=== PATIENT | female | born 1935 | race Caucasian/White ===

== ENCOUNTER → 2016-06-22 | Outpatient (CLI) | payer MEDICARE, BC ==
--- NOTE | 2016-06-22 14:59 | XR ---
EXAMINATION TYPE: XR cervical spine comp DATE OF EXAM: 06/22/2016 1:33 PM COMPARISON: None HISTORY: 81-year-old female with cervicalgia, posterior left side neck pain, injury 3 years ago. TECHNIQUE: 6 years FINDINGS: No predental space widening or prevertebral soft tissue swelling. There appears to be some degenerati ve bony ankylosis along the posterior elements of the C2-C3 vertebra. Moderate disc/endplate degenera tive change mid to lower cervical spine with disc space narrowing, endplate irregularity, and disc os teophyte complex. Corresponding multilevel facet and uncovertebral joint arthropathy. On the right, there is moderate bony spondylotic neural foraminal narrowing at C3-C4 and C6-C7. On the left, there is moderate bony spondylotic foraminal narrowing and C4-C5. Alignment is maintained. IMPRESSION: Moderate multilevel spondylotic change with variable moderate neuroforaminal narrowing as outlined ab ove. No prevertebral soft tissue swelling or malalignment.
== END | disposition home or self-care (01) ==
LOC: RADXRMAIN 13:02
PROVIDERS: ATTEND Family Medicine
DX: M99.71 Connective tissue and disc stenosis of intervertebral foramina of cervical region (principal); M47.812 Spondylosis without myelopathy or radiculopathy, cervical region
CPT/HCPCS: 72050

== ENCOUNTER 2017-04-12 15:47 | Inpatient (IN) | payer MEDICARE, BC ==
[2017-04-12] MEDS ORDERED: ASPIRIN 81 MG PO STA (16:35)
[2017-04-12] MEDS ORDERED: ONDANSETRON 4 MG/2 ML VIAL IVP STA (16:35)
[2017-04-12] MEDS ORDERED: SODIUM CHLORIDE 0.9% 500 ML IV STA (16:35)
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
[2017-04-12 17:57] LABS: Appearance,Urine Cloudy (Clear); Bacteria,Urine Rare /hpf; Bilirubin,Urine Negative (Negative); Glucose,Urine (UA) Negative (Negative); Ketones,Urine Negative (Negative); Leukocyte Esterase,Urine Large (Negative); Mucus,Urine Rare /hpf; Nitrite,Urine Negative (Negative); PH, Urine 5.5 (5.0-8.0); Particle Count 2819; Protein,Urine Negative (Negative); RBC,Urine 1 /hpf (0-5); Specific Gravity,Urine 1.014 (1.001-1.035); Squamous Epithelial Cell,Urine 8 /hpf (0-4); UA Billing (MACRO vs. MICRO) MICRO; Urobilinogen,Urine <2.0 mg/dL (<2.0); WBC,Urine 5 /hpf (0-5)
[2017-04-12 18:07] LABS: Anion Gap 12 mmol/L; Blood Urea Nitrogen 15 mg/dL (7-17); Calcium 9.5 mg/dL (8.4-10.2); Carbon Dioxide 22 mmol/L (22-30); Chloride 105 mmol/L (98-107); Glucose 116 mg/dL (74-99); Magnesium 1.8 mg/dL (1.6-2.3); Non-African American GFR(MDRD) >60 (>60 ml/min/1.73 sqM); Potassium 5.1 mmol/L (3.5-5.1); Sodium 139 mmol/L (137-145)
--- NOTE | 2017-04-12 18:10 | XR ---
EXAMINATION TYPE: XR chest 2V DATE OF EXAM: 04/12/2017 COMPARISON: 01/22/2014 HISTORY: Neck pain TECHNIQUE: Frontal and lateral views of the chest are obtained. FINDINGS: Heart is normal. Lungs are clear of consolidation. Left mastectomy is noted. There is no p leural effusion. Bony thorax is intact. There is spurring in the thoracic spine. IMPRESSION: No active cardiopulmonary disease. No change.
[2017-04-12 18:11] LABS: Basophils % (A) 0 %; CH 31.2; CHCM 33.9; Eosinophils # (A) 0.2 k/uL (0-0.7); Eosinophils % (A) 3 %; HCT 45.6 % (34.0-46.0); HDW 2.31; HGB 15.3 gm/dL (11.4-16.0); Luc # (Auto) 0.15; Luc % (Auto) 2; Lymphocytes # (A) 2.1 k/uL (1.0-4.8); Lymphocytes % (A) 28 %; MCH 30.9 pg (25.0-35.0); MCHC 33.5 g/dL (31.0-37.0); MCV 92.2 fL (80.0-100.0); Mean Platelet Volume 10.6; Monocytes # (A) 0.5 k/uL (0-1.0); Monocytes % (A) 7 %; Neutrophils # (A) 4.5 k/uL (1.3-7.7); Neutrophils % (A) 61 %; RBC 4.94 m/uL (3.80-5.40); RDW 12.6 % (11.5-15.5); WBC 7.5 k/uL (3.8-10.6)
--- NOTE | 2017-04-12 18:11 | XR ---
EXAMINATION TYPE: XR cervical spine limited DATE OF EXAM: 04/12/2017 COMPARISON: 06/22/2016 HISTORY: Neck pain TECHNIQUE: 4 views FINDINGS: Vertebra have normal alignment. There is hypertrophic spurring anteriorly at C5-6 C6-7. Ernestina antoaxial facet joint is normal. There are no cervical ribs. IMPRESSION: Spondylosis in the lower cervical spine. No fracture. No change.
[2017-04-12 20:42] VITALS: BMI 29.2
[2017-04-13 01:29] LABS: Creatine Kinase 38 U/L (30-135)
[2017-04-13 01:42] LABS: Creatine Kinase MB 0.7 ng/mL (0.0-2.4); Troponin I <0.012 ng/mL (0.000-0.034)
[2017-04-13] MEDS ORDERED: INFLUENZA VACCINE (6 MOS+) 60 MCG/0.5 ML SYRINGE IM ONE (02:15)
[2017-04-13 05:02] VITALS: RESP 18
[2017-04-13 06:48] LABS: Cholesterol 179 mg/dL (<200); HDL Cholesterol 49 mg/dL (40-60)
[2017-04-13 06:57] LABS: Glucose,Whole Blood 129 mg/dL (75-99)
[2017-04-13 06:59] LABS: Creatine Kinase 35 U/L (30-135)
[2017-04-13 07:11] LABS: Creatine Kinase MB 0.7 ng/mL (0.0-2.4); Troponin I <0.012 ng/mL (0.000-0.034)
[2017-04-13] MEDS ORDERED: ASPIRIN 325 MG TAB PO SCH (09:00)
[2017-04-13] MEDS ORDERED: REGADENOSON 0.4 MG/5 ML SYRINGE IV ONE (09:35)
[2017-04-13] MEDS ORDERED: AMINOPHYLLINE 500 MG/20 ML VIAL IV PRN (09:35)
--- NOTE | 2017-04-13 12:04 | ECHOF ---
Referral Reason:cp MEASUREMENTS -------- HEIGHT: 167.6 cm WEIGHT: 82.1 kg BP: 142/77 RVIDd: 2.9 cm (< 3.3) IVSd: 1.0 cm (0.6 - 1.1) LVIDd: 4.5 cm (3.9 - 5.3) LVPWd: 1.0 cm (0.6 - 1.1) IVSs: 1.2 cm LVIDs: 2.8 cm LVPWs: 1.2 cm LAESV Index (A-L): 15.86 ml/m Ao Diam: 3.5 cm (2.0 - 3.7) AV Cusp: 1.7 cm (1.5 - 2.6) LA Diam: 2.7 cm (2.7 - 3.8) MV EXCURSION: 14.924 mm (> 18.000) MV EF SLOPE: 58 mm/s (70 - 150) EPSS: 0.6 cm MV E Michele: 0.58 m/s MV DecT: 380 ms MV A Michele: 0.96 m/s MV E/A Ratio: 0.60 AV maxP.22 mmHg AV meanP.65 mmHg FINDINGS -------- Sinus rhythm. This was a technically difficult study with suboptimal views. The left ventricular size is normal. Left ventricular wall thickness is normal. Overall left vent ricular systolic function is normal with, an EF between 55 - 60 %. The right ventricle is normal in size and function. Normal LA size by volume 22+/-6 ml/m2. The right atrium is normal in size. 1.5mg of Definity was utilized for enhancement of images Aortic valve is trileaflet and is mildly thickened. The mitral valve leaflets are mildly thickened. Mild mitral regurgitation is present. The tricuspid valve appears structurally normal. Trace tricuspid regurgitation present. The pulmonic valve was not well visualized. There is no pulmonic regurgitation present. The aortic root size is normal. Normal inferior vena cava with normal inspiratory collapse consistent with estimated right atrial pre ssure of 5 mmHg. There is no pericardial effusion. CONCLUSIONS -------- 1. This was a technically difficult study with suboptimal views. 2. Left ventricular wall thickness is normal. 3. Overall left ventricular systolic function is normal with, an EF between 55 - 60 %. 4. Normal LA size by volume 22+/-6 ml/m2. 5. 1.5mg of Definity was utilized for enhancement of images 6. Aortic valve is trileaflet and is mildly thickened. 7. The mitral valve leaflets are mildly thickened. 8. Mild mitral regurgitation is present. 9. Trace tricuspid regurgitation present. 10. The pulmonic valve was not well visualized. 11. There is no pulmonic regurgitation present. 12. The aortic root size is normal. 13. There is no pericardial effusion. TELEVISION TECHNICIAN: Lee Quinones RDCS
[2017-04-13 12:19] LABS: Glucose,Whole Blood 126 mg/dL (75-99)
[2017-04-13 13:01] VITALS: BP 109/63; PULSE 72; TEMP 98.5
--- NOTE | 2017-04-13 13:08 | NM ---
EXAMINATION TYPE: NM stress lexiscan cardiolite DATE OF EXAM: 04/13/2017 COMPARISON: NONE HISTORY: TECHNIQUE: After the intravenous administration of 11.7 mCi Tc 99m Sestamibi - Cardiolite resting SP ECT images acquired 45 minutes post injection. The patient received 0.4mg Lexiscan, 28.8 mCi Tc 99m Sestamibi - Stress images obtained [address] injection FINDINGS: There is a fixed defect in the inferior aspect of the septum. There is some reversible isch emic change surrounding this area. There is paradoxical motion of the septum. Ejection fraction remai ns normal 66%. IMPRESSION: 1. EVIDENCE OF ANAMIKA-INFARCT ISCHEMIA IN THE REGION OF THE PREVIOUS SEPTAL INFARCT. 2. PARADOXICAL MOTION OF THE SEPTUM BUT CONTINUING NORMAL EJECTION FRACTION.
--- NOTE | 2017-04-13 13:51 | P.CRDCN ---
History of Present Illness Consult date: 04/13/17 History of present illness: This is an 81-year-old female patient past medical history significant for diabetes mellitus. Patient denies any history of coronary artery disease and is never seen a tube and manifold builder for any reason. She did undergo stress testing about 5-7 years ago with her primary care doctor and she states this was normal. Yesterday she woke up in the morning not feeling herself she said she felt nauseous and generalized weakness. She proceeded around about her day with her normal routine but the feelings persisted and became worse. She then developed some pain to the left arm she described as hot feeling. She went to physical therapy and felt that her arm heaviness and increased. At the time of my examination while she is resting in bed she denies left arm pain although when a raise the arm above her head the pain returns. EKG reveals first-degree AV block. Chest x-ray negative for acute cardiopulmonary process. Blood pressure 147/68 with a heart rate of 67. Cardiac enzymes negative 3, hemoglobin 15.3, potassium 5.1, magnesium 1.8, UUN 15, creatinine 0.6, LDL 100, HDL 49, triglycerides 148, total cholesterol 179. Review of Systems CONSTITUTIONAL: Denies fever. Denies chills. EYES: Denies blurred vision. Denies vision changes. Denies eye pain. EARS, NOSE, MOUTH & THROAT: Denies headache. Denies sore throat. Denies ear pain. CARDIOVASCULAR: Denies chest pain. Denies shortness of breath. Denies orthopnea. Denies PND. Denies palpitations. RESPIRATORY: Denies cough. GASTROINTESTINAL: Denies abdominal pain. Denies diarrhea. Denies constipation. Complains of nausea. Denies vomiting. MUSCULOSKELETAL: Denies myalgias. INTEGUMENTARY: Denies pruitis. Denies rash. NEUROLOGIC: Denies numbness. Denies tingling. Denies weakness. PSYCHIATRIC: Denies anxiety. Denies depression. ENDOCRINE: Complains of fatigue. Denies weight change. Denies polydipsia. Denies polyurina. GENITOURINARY: Denies burning, hematuria or urgency with micturation. HEMATOLOGIC: Denies history of anemia. Denies bleeding. Past Medical History Past Medical History: Diabetes Mellitus, Memory Impairment, Osteoarthritis (OA) History of Any Multi-Drug Resistant Organisms: None Reported Past Surgical History: Breast Surgery, Cholecystectomy, Tonsillectomy Additional Past Surgical History / Comment(s): 1985 Lt mastectomy, ovarian cyst removed 1956, [id number] removed bilat., colonoscopy's 2013 Past Anesthesia/Blood Transfusion Reactions: No Reported Reaction Past Psychological History: No Psychological Hx Reported Smoking Status: Never smoker Past Alcohol Use History: None Reported Past Drug Use History: None Reported - Past Family History Father Family Medical History: Congestive Heart Failure (CHF) Mother Additional Family Medical History / Comment(s): of old age Sister(s) Family Medical History: Cancer, Diabetes Mellitus, Renal Disease Additional Family Medical History / Comment(s): Colon CA Brother(s) Family Medical History: Cancer Additional Family Medical History / Comment(s): Colon CA Medications and Allergies Home Medications Medication Instructions Recorded Confirmed Type Ibuprofen [Motrin] 600 mg PO Q6HR PRN 04/12/17 04/12/17 History metFORMIN HCL [Glucophage] 500 mg PO DAILY 04/12/17 04/12/17 History Allergies Allergy/AdvReac Type Severity Reaction Status Date / Time cefaclor [From Ceclor] Allergy Rash/Hives Verified 04/12/17 20:13 Penicillins Allergy Rash/Hives Verified 04/12/17 20:13 Physical Exam Vitals: Vital Signs Temp Pulse Pulse Resp BP BP Pulse Ox 04/13/17 04:00 97.6 F 67 18 147/68 97 04/13/17 00:00 16 04/12/17 23:54 97.9 F 61 18 124/66 98 04/12/17 20:14 97.7 F 68 18 165/77 96 04/12/17 19:41 97.5 F L 70 18 154/85 99 04/12/17 18:27 98 F 65 17 150/73 99 04/12/17 15:48 100.2 F H 73 18 149/77 96 Intake and Output 04/12/17 04/13/17 04/13/17 22:59 06:59 14:59 Intake Total 400 400 Balance 400 400 Intake: Oral 400 400 Other: Voiding Method Toilet # Voids 2 2 Weight 82.3 kg GENERAL: This is a 81-year-old female in no apparent distress at the time of my examination. HEENT: Head is atraumatic, normocephalic. Pupils are equal, round. Sclerae anicteric. Conjunctivae are clear. Mucous membranes of the mouth are moist. Neck is supple. There is no jugular venous distention. No carotid bruit is heard. LUNGS: Clear to auscultation no wheezes, rales or rhonchi. No chest wall tenderness is noted on palpation or with deep breathing. HEART: Regular rate and rhythm without murmurs, rubs or gallops. S1 and S2 heard. ABDOMEN: Soft, nontender. Bowel sounds are heard. No organomegaly noted. EXTREMITIES: 2+ peripheral pulses with no evidence of peripheral edema and no calf tenderness noted. NEUROLOGIC: Patient is awake, alert and oriented x3. Results 04/12/17 17:40 04/12/17 17:40 Cardiac Enzymes 04/12/17 04/13/17 04/13/17 Range/Units 17:40 00:28 06:14 CK-MB (CK-2) 0.7 0.7 (0.0-2.4) ng/mL Troponin I <0.012 <0.012 <0.012 (0.000-0.034) ng/mL Lipids 04/13/17 Range/Units 06:14 Triglycerides 148 (<150) mg/dL Cholesterol 179 (<200) mg/dL HDL Cholesterol 49 (40-60) mg/dL CBC 04/12/17 Range/Units 17:40 WBC 7.5 (3.8-10.6) k/uL RBC 4.94 (3.80-5.40) m/uL Hgb 15.3 (11.4-16.0) gm/dL Hct 45.6 (34.0-46.0) % Plt Count 128 L (150-450) k/uL Comprehensive Metabolic Panel 04/12/17 Range/Units 17:40 Sodium 139 (137-145) mmol/L Potassium 5.1 (3.5-5.1) mmol/L Chloride 105 (98-107) mmol/L Carbon Dioxide 22 (22-30) mmol/L BUN 15 (7-17) mg/dL Creatinine 0.60 (0.52-1.04) mg/dL Glucose 116 H (74-99) mg/dL Calcium 9.5 (8.4-10.2) mg/dL Current Medications Generic Name Dose Route Start Last Admin Trade Name Freq PRN Reason Stop Dose Admin Aspirin 325 mg 04/13/17 09:00 Aspirin PO DAILY STEPHANIE Intake and Output 04/12/17 04/13/17 04/13/17 22:59 06:59 14:59 Intake Total 400 400 Balance 400 400 Intake: Oral 400 400 Other: Voiding Method Toilet # Voids 2 2 Weight 82.3 kg 04/12/17 17:40 04/12/17 17:40 Assessment and Plan Assessment: ASSESSMENT 1. Left arm pain with nausea persistent at rest, atypical for acute coronary syndrome. Cardiac risk factors include diabetes mellitus. 2. Diabetes mellitus, on oral hyperglycemic agent PLAN Obtain 2D echocardiogram and doppler study to assess cardiac structure and function. She has been NPO since midnight so we will order a Lexiscan stress test to evaluate for cardiac ischemia. From cardiac perspective, if this testing is normal she is stable for discharge home. She can follow up with her PCP next week. Nurse Practitioner note has been reviewed, I agree with a documented findings and plan of care. Patient was seen and examined.
--- NOTE | 2017-04-13 14:03 | EST ---
EXERCISE STRESS AGE: 81 SEX: F HT: 5'6" WT: 182 PROTOCOL: Lexiscan Cardiolite Stress Test HEART RATE REST: 70 BLOOD PRESSURE REST: 192/104 MAXIMUM HEART RATE ACHIEVED: 86 MAXIMUM BLOOD PRESSURE: 192/104 INDICATIONS: Chest pain. CLINICAL INFORMATION: Baseline rhythm is a sinus mechanism, rate of 70, intraventricular conduction delay, nonspecific ST-T wave changes. Baseline blood pressure 192/104 mmHg. Patient received injection of Lexiscan. Electrocardiographic monitoring revealed no evidence of diagnostic ischemic ST deviation. Cardiolite was injected per protocol. CONCLUSION: 1. Nondiagnostic electrocardiogram stress testing. 2. Nuclear images will be reported separately. MMODL / IJN: [id number] /
--- NOTE | 2017-04-13 16:13 | P.HPIM ---
History of Present Illness 81-year-old female came in with compensative chest pain which appears to be musculoskeletal and related to neck pain patient has degenerative neck disease patient has radiating pain from the neck to the arms patient has atypical chest pain patient's chest pain is about 5- 6 x 10 in severity nonradiating.not associated with food nonpleuritic in nature patient was a valid by cardiology underwent stress test which showed old ischemic changes without any inducible ischemia because of which cardiology recommending outpatient follow-up aspirin. Patient regarding cardiac ablation will be made as an outpatient. Review of Systems REVIEW OF SYSTEMS: CONSTITUTIONAL: No fever, no malaise, no fatigue. HEENT: No recent visual problems or hearing problems. Denied any sore throat. CARDIOVASCULAR: No orthopnea, PND, no palpitations, no syncope. PULMONARY: No shortness of breath, no cough, no hemoptysis. GASTROINTESTINAL: No diarrhea, no nausea, no vomiting, no abdominal pain. Normoactive bowel sounds. NEUROLOGICAL: No headaches, no weakness, no numbness. HEMATOLOGICAL: Denies any bleeding or petechiae. GENITOURINARY: Denies any burning micturition, frequency, or urgency. MUSCULOSKELETAL/RHEUMATOLOGICAL: Denies any joint pain, swelling, or any muscle pain. ENDOCRINE: Denies any polyuria or polydipsia. The rest of the 14-point review of systems is negative. Past Medical History Past Medical History: Diabetes Mellitus, Memory Impairment, Osteoarthritis (OA) History of Any Multi-Drug Resistant Organisms: None Reported Past Surgical History: Breast Surgery, Cholecystectomy, Tonsillectomy Additional Past Surgical History / Comment(s): 1985 Lt mastectomy, ovarian cyst removed 1956, [id number] removed bilat., colonoscopy's 2013 Past Anesthesia/Blood Transfusion Reactions: No Reported Reaction Past Psychological History: No Psychological Hx Reported Smoking Status: Never smoker Past Alcohol Use History: None Reported Past Drug Use History: None Reported - Past Family History Father Family Medical History: Congestive Heart Failure (CHF) Mother Additional Family Medical History / Comment(s): of old age Sister(s) Family Medical History: Cancer, Diabetes Mellitus, Renal Disease Additional Family Medical History / Comment(s): Colon CA Brother(s) Family Medical History: Cancer Additional Family Medical History / Comment(s): Colon CA Medications and Allergies Home Medications Medication Instructions Recorded Confirmed Type Ibuprofen [Motrin] 600 mg PO Q6HR PRN 04/12/17 04/12/17 History metFORMIN HCL [Glucophage] 500 mg PO DAILY 04/12/17 04/12/17 History Aspirin 81 mg PO DAILY #30 chewable 04/13/17 Rx Ranitidine HCl [Zantac] 150 mg PO BID #30 tab 04/13/17 Rx Allergies Allergy/AdvReac Type Severity Reaction Status Date / Time cefaclor [From [facility]] Allergy Rash/Hives Verified 04/12/17 20:13 Penicillins Allergy Rash/Hives Verified 04/12/17 20:13 Physical Exam Vitals: Vital Signs Temp Pulse Pulse Resp BP BP Pulse Ox 04/13/17 12:00 98.5 F 72 18 109/63 96 04/13/17 08:00 97.8 F 57 L 18 142/77 97 04/13/17 04:00 97.6 F 67 18 147/68 97 04/13/17 00:00 16 04/12/17 23:54 97.9 F 61 18 124/66 98 04/12/17 20:14 97.7 F 68 18 165/77 96 04/12/17 19:41 97.5 F L 70 18 154/85 99 04/12/17 18:27 98 F 65 17 150/73 99 Intake and Output 04/13/17 04/13/17 04/13/17 06:59 14:59 22:59 Intake Total 400 360 Balance 400 360 Intake: Oral 400 360 Other: Voiding Method Toilet Toilet # Voids 2 PHYSICAL EXAMINATION: GENERAL: The patient is alert and oriented x3, not in any acute distress. Well developed, well nourished. HEENT: Pupils are round and equally reacting to light. EOMI. No scleral icterus. No conjunctival pallor. Normocephalic, atraumatic. No pharyngeal erythema. No thyromegaly. CARDIOVASCULAR: S1 and S2 present. No murmurs, rubs, or gallops. PULMONARY: Chest is clear to auscultation, no wheezing or crackles. ABDOMEN: Soft, nontender, nondistended, normoactive bowel sounds. No palpable organomegaly. MUSCULOSKELETAL: No joint swelling or deformity. EXTREMITIES: No cyanosis, clubbing, or pedal edema. NEUROLOGICAL: Gross neurological examination did not reveal any focal deficits. SKIN: No rashes. Results CBC & Chem 7: 04/12/17 17:40 04/12/17 17:40 Labs: Abnormal Lab Results - Last 24 Hours (Table) 04/12/17 04/12/17 04/12/17 Range/Units 17:40 17:40 17:40 Plt Count 128 L (150-450) k/uL Glucose 116 H (74-99) mg/dL POC Glucose (mg/dL) (75-99) mg/dL LDL Cholesterol, Calc (0-99) mg/dL Urine Appearance Cloudy H (Clear) Ur Leukocyte Esterase Large H (Negative) Ur Squamous Epith Cells 8 H (0-4) /hpf Urine Bacteria Rare H (None) /hpf Urine Mucus Rare H (None) /hpf 04/13/17 04/13/17 04/13/17 Range/Units 06:14 06:54 12:15 Plt Count (150-450) k/uL Glucose (74-99) mg/dL POC Glucose (mg/dL) 129 H 126 H (75-99) mg/dL LDL Cholesterol, Calc 100 H (0-99) mg/dL Urine Appearance (Clear) Ur Leukocyte Esterase (Negative) Ur Squamous Epith Cells (0-4) /hpf Urine Bacteria (None) /hpf Urine Mucus (None) /hpf Thrombosis Risk Factor Assmnt - Choose All That Apply Each Risk Factor Represents 3 Points: Age 75 years or older Other congenital or acquired thrombophilia - If yes, enter type in comment: No Thrombosis Risk Factor Assessment Total Risk Factor Score: 3 Thrombosis Risk Factor Assessment Level: Moderate Risk Assessment and Plan Plan: left shoulder pain and neck pain: [place] skeletal in origin rule out acute coronary syndromes stresses as mentioned above. 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 Norton as an outpatient. Patient can continue her ibuprofen Pepcid will be provided to avoid gastroesophageal reflux disease.
--- NOTE | 2017-04-13 16:16 | P.DS ---
Providers Date of admission: 04/13/17 14:08 Attending physician: Mitch Pierce Consults: 04/12/17 18:58 Consult Physician Urgent Consulting Provider: [facility] Consult Reason/Comments: anginal equivalent Do you want consulting provider notified?: Yes Primary care physician: Hugo Roca [facility] Course: refer to my [facility] Patient Condition at Discharge: Good Plan - Discharge Summary Discharge Rx Participant: Yes New Discharge Prescriptions: New Ranitidine HCl [Zantac] 150 mg PO BID #30 tab Aspirin 81 mg PO DAILY #30 chewable No Action metFORMIN HCL [Glucophage] 500 mg PO DAILY Ibuprofen [Motrin] 600 mg PO Q6HR PRN PRN Reason: Pain Discharge Medication List Ibuprofen [Motrin] 600 mg PO Q6HR PRN 04/12/17 [History] metFORMIN HCL [Glucophage] 500 mg PO DAILY 04/12/17 [History] Aspirin 81 mg PO DAILY #30 chewable 04/13/17 [Rx] Ranitidine HCl [Zantac] 150 mg PO BID #30 tab 04/13/17 [Rx] Follow up Appointment(s)/Referral(s): Tessa Norton MD [STAFF PHYSICIAN] - 04/16/17 8:00 am Hugo Roca DO [Primary Care Provider] - 3 Days Patient Instructions/Handouts: Chest Pain (DC) Discharge Disposition: HOME SELF-CARE
== END 2017-04-13 15:30 | disposition home or self-care (01) | DRG 552 ==
LOC: EC 15:47 → 3OBS 18:58 → OBSVTOIN 04-13 14:08
PROVIDERS: ADMIT Hospitalist; ATTEND Hospitalist
DX: M47.812 Spondylosis without myelopathy or radiculopathy, cervical region (principal); E11.65 Type 2 diabetes mellitus with hyperglycemia; M47.894 Other spondylosis, thoracic region; M25.512 Pain in left shoulder; I44.0 Atrioventricular block, first degree; Z79.82 Long term (current) use of aspirin; Z80.0 Family history of malignant neoplasm of digestive organs; Z82.49 Family history of ischemic heart disease and other diseases of the circulatory system; Z83.3 Family history of diabetes mellitus; Z88.1 Allergy status to other antibiotic agents; Z88.0 Allergy status to penicillin; Z79.84 Long term (current) use of oral hypoglycemic drugs
CPT/HCPCS: 36415; 71020; 72040; 78452; 80048; 80061; 81001; 82550; 82553; 83036; 83735; 84484; 85025; 90686; 93005; 93017; 93306; 96361; 96374; 99284

== ENCOUNTER → 2017-04-17 | Outpatient (CLI) | payer MEDICARE, BC ==
--- NOTE | 2017-04-17 13:53 | MM ---
Reason for exam: additional evaluation requested from prior study. Last mammogram was performed 1 year ago. History: Patient is postmenopausal and has history of breast cancer at age 50. Family history of breast cancer in father at age 80, breast cancer in sister at age 86, and breast cancer in sister at age 74. Mastectomy of the left breast, 1985. Took tamoxifen for 5 years beginning at age 51. Physical Findings: Nurse did not find any significant physical abnormalities on exam. MG 3D Diag Mammo W/Cad RT CC, MLO, XCCL, and ML view(s) were taken of the right breast. Prior study comparison: April 12, 2016, right breast MG 3d diag mammo w/cad RT. March 29, 2015, right breast MG 3d diag mammo w/cad RT. March 09, 2014, right breast MG diagnostic mammo RT w CAD. There are scattered fibroglandular densities. There is chronic nodularity in the right breast. No significant new findings when compared with previous films. These results were verbally communicated with the patient and result sheet given to the patient on 04/17/17. ASSESSMENT: Negative, BI-RAD 1 RECOMMENDATION: Follow-up diagnostic mammogram of the right breast in 1 year.
== END | disposition home or self-care (01) ==
LOC: RADMAMWWP 12:40
PROVIDERS: ATTEND Family Medicine
DX: Z08 Encounter for follow-up examination after completed treatment for malignant neoplasm (principal); Z85.3 Personal history of malignant neoplasm of breast
CPT/HCPCS: G0206; G0279

== ENCOUNTER → 2017-04-30 | Day surgery (SDC) | payer MEDICARE, BC ==
[~2017-04-30] MED LIST: ALPRAZolam 0.25 MG TAB PO PRN; ALPRAZolam 0.5 MG TAB PO PRN; ASPIRIN 325 MG TAB PO STA; HEPARIN SODIUM 1,000 UN/ML (10ML VL) IV ONE; HEPARIN SODIUM 1,000 UN/ML (10ML VL) ONE; IOHEXOL 350 MG/ML 125ML BOTTLE INJ ONE; LIDOCAINE 2% INJ 20 MG/ML (20 ML MDV) ONE; LIDOCAINE 2% INJ 20 MG/ML SQ ONE; NITROGLYCERIN SL TABS 0.4 MG TAB SUBLINGUAL ONE; NITROGLYCERIN SL TABS 0.4 MG TAB SUBLINGUAL PRN; SODIUM CHLORIDE 0.9% 1,000 ML IV SCH; SODIUM CHLORIDE 0.9% 1,000 ML in EMPTY BAG 1 BAG IV ONE; VERAPAMIL 2.5 MG/ML 2 ML AMP ONE; VERAPAMIL SYRINGE (5 MG/10 ML) INTRAARTER ONE; diphenhydrAMINE 50 MG/ML 1 ML VIAL IVP ONE; diphenhydrAMINE 50 MG/ML 1 ML VIAL ONE; fentaNYL (PF) 50 MCG/ML 2 ML AMP IVP ONE; fentaNYL (PF) 50 MCG/ML 2 ML AMP ONE
[2017-04-30 06:57] VITALS: RESP 18
[2017-04-30 08:19] VITALS: TEMP 98.2
--- NOTE | 2017-04-30 08:40 | CC ---
CARDIAC CATHETERIZATION REPORT Mrs. Kinsey is an 81-year-old female, known history of diabetes, family history of premature coronary artery disease, who presented with symptoms of arm and chest discomfort, underwent myocardial perfusion imaging that was consistent with stress- induced ischemia. In view of that, recommendation made regarding cardiac catheterization. The procedures, risks and complication were discussed with the patient who was in full understanding and agreement. PROCEDURE: Patient was brought to the [facility] in a fasting semi-sedated state after receiving fentanyl and Benadryl and achieving moderate conscious sedated state. Using Xylocaine anesthesia and Seldinger technique, a 6-[place] sheath was introduced in the right radial artery. Selective right and left coronary angiography was performed using 5- [place] 3.5 bend right and left Anisha catheter, multiple views of the coronary artery including hemiaxial views were obtained. Following that, a 5-[place] tight pigtail catheter was introduced into the left ventricle and a 30 degree WHITE view of the left ventricle was obtained. Following that, the catheter and sheath were removed. Hemostasis was obtained with a TR band. There was no immediate complication. Patient was returned to her room in stable condition. Of note, the patient received 4500 units of intravenous heparin as well as intra-arterial verapamil. FINDINGS: 1. FLUOROSCOPY: There was calcification involving the left main, left anterior descending artery as well as right coronary. 2. LEFT MAIN: This is a short size vessel, large in caliber, bifurcating into left circumflex, left anterior descending artery. Left main coronary artery is without any evidence of high-grade stenosis. 3. LEFT ANTERIOR DESCENDING ARTERY: This is a large-sized vessel reaching toward the apex with a wraparound apex segment, giving rise to a large proximal diagonal branch. The left anterior descending artery and the proximal mid segment has diffuse intimal disease of 20% to 30%. The first diagonal branch has intimal disease of 20% to 30% as well. 4. LEFT CIRCUMFLEX: This is a nondominant vessel, large in caliber giving rise to three obtuse marginal branch. The second one is the largest in caliber. The left circumflex has mild intimal disease throughout its course up to 20%. 5. RIGHT CORONARY ARTERY: This is a dominant vessel bifurcating distally into PDA, postop segmental branches. The right coronary artery and the ostium as well as in mid and distal segment has diffuse intimal disease with area of stenosis up to 30% to 40% without any evidence of high-grade stenosis. 6. LEFT VENTRICULOGRAM: Left ventriculogram was performed in 30 degree WHITE view and revealed normal left ventricular size and systolic function. Ejection fraction is 60%. There was no significant mitral regurgitation. 7. HEMODYNAMICS: There was no gradient across the aortic valve. The left ventricle end-diastolic pressure was 12 to 60 mmHg. CONCLUSION: 1. Mildly calcified coronary arteries. 2. Mild triple-vessel disease. 3. Normal left ventricular size and systolic function. RECOMMENDATION: In view of finding anatomy, I would recommend continue medical therapy with aggressive risk factor modifications being initiated. Those findings and recommendation were discussed with the patient and her family who was in full understanding and agreement. DURATION OF THE PROCEDURE: 20 minutes MMODL / IJN: [id number] /
--- NOTE | 2017-04-30 08:43 | LTR ---
DATE OF SERVICE: 04/26/2017 RE: Isabel Kinsey Dear Dr. Roca; I had the pleasure to perform cardiac catheterization on Mrs. Kinsey at [facility] on April 30, 2017 and a full copy of the procedure note will be forwarded to you. In brief, she was found to have mild triple-vessel coronary artery disease with a normal left ventricular size and systolic function. Based on those findings, I have recommended to continue medical therapy with the aggressive risk factor modifications being initiated. Thank you again for allowing me to participate in this patient's care. Please feel free to call for any questions. Sincerely yours, MD SEBASTIAN Gonzalez / YEYON: [id number] /
[2017-04-30 12:37] VITALS: BP 119/60; PULSE 66
== END ==
LOC: CATHCVL 06:30
PROVIDERS: ATTEND Internal Medicine Interventional Cardiology
DX: I25.10 Atherosclerotic heart disease of native coronary artery without angina pectoris (principal); I25.84 Coronary atherosclerosis due to calcified coronary lesion; Z82.49 Family history of ischemic heart disease and other diseases of the circulatory system; E11.9 Type 2 diabetes mellitus without complications; Z79.84 Long term (current) use of oral hypoglycemic drugs; Z79.82 Long term (current) use of aspirin; Z88.1 Allergy status to other antibiotic agents; Z88.0 Allergy status to penicillin
CPT/HCPCS: 93458; C1894; C1769; J2001; J1200; J3010; J1644; Q9967

== ENCOUNTER 2017-07-31 09:50 | Day surgery (SDC) | payer MEDICARE, BC ==
[2017-07-27 08:18] VITALS: BMI 28.2
[~2017-07-31 09:50] MED LIST changes: -ALPRAZolam 0.25 MG TAB PO PRN; -ALPRAZolam 0.5 MG TAB PO PRN; -ASPIRIN 325 MG TAB PO STA; +DEXAMETHASONE SOD PHOSPHATE 10 MG/ML 1 ML VIAL IV ONE; -HEPARIN SODIUM 1,000 UN/ML (10ML VL) IV ONE; -HEPARIN SODIUM 1,000 UN/ML (10ML VL) ONE; +HEPARIN SODIUM,PORCINE 5,000 UNIT/ML 1 ML VIAL SQ ONE; +HYDROmorphone 0.5 MG/0.5 ML SYRINGE IVP PRN; -IOHEXOL 350 MG/ML 125ML BOTTLE INJ ONE; +LACTATED RINGERS 1,000 ML IV SCH; -LIDOCAINE 2% INJ 20 MG/ML (20 ML MDV) ONE; -LIDOCAINE 2% INJ 20 MG/ML SQ ONE; -NITROGLYCERIN SL TABS 0.4 MG TAB SUBLINGUAL ONE; -NITROGLYCERIN SL TABS 0.4 MG TAB SUBLINGUAL PRN; +ONDANSETRON 4 MG/2 ML VIAL IVP ONE; +Pre Op ABX Message 1 EACH MISC MISCELLANE ONE; -SODIUM CHLORIDE 0.9% 1,000 ML IV SCH; -SODIUM CHLORIDE 0.9% 1,000 ML in EMPTY BAG 1 BAG IV ONE; -VERAPAMIL 2.5 MG/ML 2 ML AMP ONE; -VERAPAMIL SYRINGE (5 MG/10 ML) INTRAARTER ONE; -diphenhydrAMINE 50 MG/ML 1 ML VIAL IVP ONE; -diphenhydrAMINE 50 MG/ML 1 ML VIAL ONE; -fentaNYL (PF) 50 MCG/ML 2 ML AMP IVP ONE; -fentaNYL (PF) 50 MCG/ML 2 ML AMP ONE
[2017-07-31 10:41] VITALS: RESP 18; TEMP 98.2
[2017-07-31] MEDS ORDERED: LIDOCAINE 1% 20 ML VIAL (10MG/ML) FOR IV START INTRADERMA ONE (10:48)
[2017-07-31 11:01] LABS: Glucose,Whole Blood 137 mg/dL (75-99)
[2017-07-31] MEDS ORDERED: HEPARIN SODIUM,PORCINE 5,000 UNIT/ML 1 ML VIAL SQ ONE (13:35)
[2017-07-31] MEDS ORDERED: MIDAZOLAM 2 MG/2 ML VIAL IV ONE (13:39)
[2017-07-31] MEDS ORDERED: LIDOCAINE 1% INJ 10MG/ML (20 ML MDV) SQ ONE ×2 (13:54→15:27)
[2017-07-31] MEDS ORDERED: LIDOCAINE 1% INJ 10MG/ML (20 ML MDV) ONE (14:02)
[2017-07-31] MEDS ORDERED: PROPOFOL 10 MG/ML 20 ML VIAL IV ONE (14:02)
[2017-07-31] MEDS ORDERED: MIDAZOLAM 2 MG/2 ML VIAL ONE (14:02)
[2017-07-31] MEDS ORDERED: fentaNYL (PF) 50 MCG/ML 2 ML AMP ONE (14:02)
[2017-07-31] MEDS ORDERED: SODIUM CHLORIDE 0.9% 100 ML with CLINDAMYCIN 600 MG IV ONE ×2 (14:43)
[2017-07-31] MEDS ORDERED: SODIUM CHLORIDE 0.9% 500 ML IV ONE (15:01)
--- NOTE | 2017-07-31 15:21 | P.OP ---
Date of Procedure: 07/31/17 Preoperative Diagnosis: dark skin lesion right nipple lateral aspect Postoperative Diagnosis: bloody nipple discharge, duct exploration Procedure(s) Performed: right duct exploration Anesthesia: MAC Surgeon: Miladis Philip Estimated Blood Loss (ml): 10 IV fluids (ml): 450 Pathology: other (breast tissue) Condition: stable Disposition: PACU Indications for Procedure: dark discolaration of the nipple area, when evaluated it appeared to be bloody dischage Operative Findings: bloody nipple discharge, duct exploration Description of Procedure: Patient was taken to the operating room, and following induction of anesthesia the right breast was prepped and draped in a sterile fashion. Evaluation of the nipple which was very dark in the lateral aspect revealed that this was a bloody discharge. Discussion was had with the patient's daughter regarding the fact that this was not a cutaneous lesion that appeared to be bloody nipple discharge. The daughter was told that this would necessitate duct exploration and she agreed. She was told the risks and benefits and wished for us to proceed. A circumareolar incision was made and carried down to the dilated ductal system. The ductal system was followed circumferentially down to the chest wall. This tissue was excised. Following this the wound was examined for hemostasis. After we were assured that hemostasis was attained the deep tissues were closed using a 3-0 Vicryl suture. The tissue directly under the nipple was closed with a Vicryl suture to avoid indentation of the nipple. A small portion of the skin was excised to facilitate closure. The skin was then closed with 4-0 Monocryl. All instrument and sponge counts were correct at the end of the case. The specimen was painted for orientation. The patient tolerated the procedure in stable condition.
--- NOTE | 2017-07-31 15:22 | P.DS ---
Providers Attending physician: Miladis Philip Primary care physician: Hugo Roca Plan - Discharge Summary New Discharge Prescriptions: No Action metFORMIN HCL [Glucophage] 500 mg PO DAILY Aspirin 81 mg PO DAILY #30 chewable Atorvastatin [Lipitor] 20 mg PO DAILY Cholecalciferol [Vitamin D3] 1,000 unit PO DAILY Cyanocobalamin (Vitamin B-12) [Vitamin B-12] 1,000 mcg PO DAILY Discharge Medication List metFORMIN HCL [Glucophage] 500 mg PO DAILY 04/12/17 [History] Aspirin 81 mg PO DAILY #30 chewable 04/13/17 [Rx] Atorvastatin [Lipitor] 20 mg PO DAILY 04/25/17 [History] Cholecalciferol [Vitamin D3] 1,000 unit PO DAILY 07/27/17 [History] Cyanocobalamin (Vitamin B-12) [Vitamin B-12] 1,000 mcg PO DAILY 07/27/17 [ History] Follow up Appointment(s)/Referral(s): Miladis Philip MD [STAFF PHYSICIAN] - 1 Week Activity/Diet/Wound Care/Special Instructions: do not drive today do not drive if taking narcotic pain medication wear bra at all times may shower after 48 hours Discharge Disposition: HOME SELF-CARE
[2017-07-31 16:17] VITALS: BP 135/78; PULSE 78
== END 2017-07-31 16:54 | disposition home or self-care (01) ==
LOC: OR 09:50
PROVIDERS: ATTEND Surgery
DX: N60.11 Diffuse cystic mastopathy of right breast (principal); N60.31 Fibrosclerosis of right breast; Z85.3 Personal history of malignant neoplasm of breast; Z80.3 Family history of malignant neoplasm of breast; Z80.0 Family history of malignant neoplasm of digestive organs; Z80.8 Family history of malignant neoplasm of other organs or systems; E11.9 Type 2 diabetes mellitus without complications; Z79.84 Long term (current) use of oral hypoglycemic drugs; I25.10 Atherosclerotic heart disease of native coronary artery without angina pectoris; Z79.82 Long term (current) use of aspirin; Z79.899 Other long term (current) drug therapy; Z88.1 Allergy status to other antibiotic agents; Z88.0 Allergy status to penicillin; Z91.09 Other allergy status, other than to drugs and biological substances
CPT/HCPCS: 88307; 19120; J2250; J1644; J1100; J2405; J2001; J3010; J2704

== ENCOUNTER 2018-02-27 09:18 | Emergency (ER) | payer MEDICARE, BC ==
[2018-02-27] MEDS ORDERED: SODIUM CHLORIDE 0.9% 1,000 ML IV STA ×2 (09:51)
--- NOTE | 2018-02-27 09:54 | ED ---
Abdominal Pain HPI - General Chief Complaint: Abdominal Pain Stated Complaint: Abd Pain Time Seen by Provider: 02/27/18 09:19 Source: patient, EMS, RN notes reviewed, old records reviewed Mode of arrival: EMS Limitations: no limitations - History of Present Illness Initial Comments: This Patient is a pleasant 82-year-old female presents emergency Department chief complaint of a sudden onset of severe left lower quadrant abdominal pain after having a bowel movement. Patient reports that she has pain which is a dull ache at this time. She does report she felt extremely nauseated when it started to occur. Patient states the pain does not radiate towards her back. She did feel lightheaded and dizzy when the pain was occurring. She lives alone and called the EMS. She was given Zofran and fentanyl with relief of her nausea and pain symptoms at this time. She does report she has history of constipation. She does not remember the last time she had a bowel movement prior to this morning. Patient also states she is prone to urinary tract infections. Surgical history includes left oophorectomy and cholecystectomy. She reports she did have a colonoscopy a few years ago which was benign.Patient denies any recent fever, chills, shortness of breath, chest pain, back pain, , numbness or tingling, dysuria or hematuria, or diarrhea, headaches or visual changes, or any other current symptoms - Related Data Home Medications Medication Instructions Recorded Confirmed metFORMIN HCL [Glucophage] 500 mg PO DAILY 04/12/17 02/27/18 Atorvastatin [Lipitor] 20 mg PO DAILY 04/25/17 02/27/18 Cholecalciferol [Vitamin D3] 1,000 unit PO DAILY 07/27/17 02/27/18 Cyanocobalamin (Vitamin B-12) 1,000 mcg PO DAILY 07/27/17 02/27/18 [Vitamin B-12] Calcium Carbonate [Calcium] 600 mg PO DAILY 02/27/18 02/27/18 Ibuprofen [Motrin Ib] 200 - 400 mg PO Q6H PRN 02/27/18 02/27/18 Previous Rx's Medication Instructions Recorded Aspirin 81 mg PO DAILY #30 chewable 04/13/17 Bisacodyl [Dulcolax] 10 mg PO ONCE #20 tablet. 02/27/18 Ondansetron Odt [Zofran Odt] 4 mg PO Q8HR PRN #12 tab 02/27/18 Allergies Allergy/AdvReac Type Severity Reaction Status Date / Time adhesive tape Allergy Rash/Hives Verified 02/27/18 09:28 cefaclor [From Ceclor] Allergy Rash/Hives Verified 02/27/18 09:28 Penicillins Allergy Rash/Hives Verified 02/27/18 09:28 Review of Systems ROS Statement: Those systems with pertinent positive or pertinent negative responses have been documented in the HPI. ROS Other: All systems not noted in ROS Statement are negative. Past Medical History Past Medical History: Cancer, Diabetes Mellitus, Memory Impairment, Osteoarthritis (OA) Additional Past Medical History / Comment(s): rectocele, chronic neck pain from fall, hx breast cancer (no left arm use.) History of Any Multi-Drug Resistant Organisms: None Reported Past Surgical History: Breast Surgery, Cholecystectomy, Heart Catheterization, Tonsillectomy Additional Past Surgical History / Comment(s): Lt mastectomy, ovarian cyst removed, jaimee cataracts, Past Anesthesia/Blood Transfusion Reactions: Previous Problems w/ Anesthesia Additional Past Anesthesia/Blood Transfusion Reaction / Comment(s): "took a long time to come out" Past Psychological History: No Psychological Hx Reported Smoking Status: Never smoker Past Alcohol Use History: None Reported Past Drug Use History: None Reported - Past Family History Father Family Medical History: Cancer Additional Family Medical History / Comment(s): breast cancer Mother Additional Family Medical History / Comment(s): of old age Sister(s) Family Medical History: Cancer Additional Family Medical History / Comment(s): Colon,stomach Brother(s) Family Medical History: Cancer Additional Family Medical History / Comment(s): Colon,melanoma,prostate,stomach General Exam - General Exam Comments Initial Comments: This is an 82-year-old female. Alert and oriented. No significant distress. Limitations: no limitations General appearance: alert, in no apparent distress Head exam: Present: atraumatic, normocephalic, normal inspection Eye exam: Present: normal appearance, PERRL, EOMI. Absent: scleral icterus, conjunctival injection, periorbital swelling ENT exam: Present: normal exam, mucous membranes moist Neck exam: Present: normal inspection. Absent: tenderness, meningismus, lymphadenopathy Respiratory exam: Present: normal lung sounds bilaterally. Absent: respiratory distress, wheezes, rales, rhonchi, stridor Cardiovascular Exam: Present: regular rate, normal rhythm, normal heart sounds. Absent: systolic murmur, diastolic murmur, rubs, gallop, clicks GI/Abdominal exam: Present: soft, tenderness (Normal left lower quadrant tenderness.), normal bowel sounds. Absent: distended, guarding, rebound, rigid Extremities exam: Present: normal inspection, full ROM, normal capillary refill. Absent: tenderness, pedal edema, joint swelling, calf tenderness Back exam: Present: normal inspection Neurological exam: Present: alert, oriented X3, CN II-XII intact Psychiatric exam: Present: normal affect, normal mood Skin exam: Present: warm, dry, intact, normal color. Absent: rash Course Vital Signs 02/27/18 02/27/18 02/27/18 09:24 12:00 14:16 Temperature 98.0 F 98.3 F Pulse Rate 63 66 72 Respiratory 18 16 16 Rate Blood Pressure 126/63 120/64 135/68 O2 Sat by Pulse 96 97 99 Oximetry Medical Decision Making - Medical Decision Making 82-year-old female presents today after feeling of a bowel movement she started to have some severe left-sided lower abdominal pain. She is no fevers or chills Patient also felt extremely nauseated. Patient was given IV fluids labwork obtained. She did complain of continued pain. X-ray does show moderate stool burn but no acute process. Lab work was reviewed and normal". When I did reevaluate the Patient she still complained of significant tenderness over the left lower quadrant. She denies any chest pain or any other symptoms. She did have evidence of some changes on her EKG including a left bundle-branch block. However she is asymptomatic at this time and denies any specific chest pain shortness breath or significant dizziness. Patient troponin was negative. With the continued. We did complete a computed tomography scan of her abdomen and pelvis. This is negative for any acute process but she does have significant diverticulosis. No signs or symptoms are related to the left-sided abdominal pain. Discussed most likely a gastritis related pain or from stool shifting. Discussed putting the Patient on stool softeners she was suffering from some constipation prior to the onset of her pain and having a bowel movement today. I discussed also discharging her with nausea medication. I discussed that she'll have close follow-up with her primary care physician and return to the emergency department if any alarming signs or symptoms occur. Patient understands treatment plan will comply. - Lab Data Result diagrams: 02/27/18 10:01 02/27/18 09:38 Lab Results 02/27/18 02/27/18 02/27/18 Range/Units 09:38 09:38 10:01 WBC 6.1 (3.8-10.6) k/uL RBC 4.56 (3.80-5.40) m/uL Hgb 13.7 (11.4-16.0) gm/dL Hct 41.7 (34.0-46.0) % MCV 91.5 (80.0-100.0) fL MCH 30.0 (25.0-35.0) pg MCHC 32.8 (31.0-37.0) g/dL RDW 12.8 (11.5-15.5) % Plt Count 130 L (150-450) k/uL Neutrophils % 71 % Lymphocytes % 18 % Monocytes % 6 % Eosinophils % 3 % Basophils % 0 % Neutrophils # 4.3 (1.3-7.7) k/uL Lymphocytes # 1.1 (1.0-4.8) k/uL Monocytes # 0.4 (0-1.0) k/uL Eosinophils # 0.2 (0-0.7) k/uL Basophils # 0.0 (0-0.2) k/uL PT (9.0-12.0) sec INR (<1.2) APTT (22.0-30.0) sec Sodium 140 (137-145) mmol/L Potassium 4.4 (3.5-5.1) mmol/L Chloride 106 (98-107) mmol/L Carbon Dioxide 25 (22-30) mmol/L Anion Gap 9 mmol/L BUN 14 (7-17) mg/dL Creatinine 0.67 (0.52-1.04) mg/dL Est GFR (CKD-EPI)AfAm >90 (>60 ml/min/1.73 sqM) Est GFR (CKD-EPI)NonAf 82 (>60 ml/min/1.73 sqM) Glucose 195 H (74-99) mg/dL Calcium 8.7 (8.4-10.2) mg/dL Total Bilirubin 0.8 (0.2-1.3) mg/dL AST 21 (14-36) U/L ALT 26 (9-52) U/L Alkaline Phosphatase 66 (38-126) U/L Troponin I <0.012 (0.000-0.034) ng/mL Total Protein 6.4 (6.3-8.2) g/dL Albumin 3.7 (3.5-5.0) g/dL Amylase 37 (30-110) U/L Lipase 31 (23-300) U/L Urine Color Urine Appearance (Clear) Urine pH (5.0-8.0) Ur Specific [place] (1.001-1.035) Urine Protein (Negative) Urine Glucose (UA) (Negative) Urine Ketones (Negative) Urine Blood (Negative) Urine Nitrite (Negative) Urine Bilirubin (Negative) Urine Urobilinogen (<2.0) mg/dL Ur Leukocyte Esterase (Negative) Urine RBC (0-5) /hpf Urine WBC (0-5) /hpf Ur Squamous Epith Cells (0-4) /hpf Urine Bacteria (None) /hpf Urine Mucus (None) /hpf 02/27/18 02/27/18 Range/Units 10:01 11:24 WBC (3.8-10.6) k/uL RBC (3.80-5.40) m/uL Hgb (11.4-16.0) gm/dL Hct (34.0-46.0) % MCV (80.0-100.0) fL MCH (25.0-35.0) pg MCHC (31.0-37.0) g/dL RDW (11.5-15.5) % Plt Count (150-450) k/uL Neutrophils % % Lymphocytes % % Monocytes % % Eosinophils % % Basophils % % Neutrophils # (1.3-7.7) k/uL Lymphocytes # (1.0-4.8) k/uL Monocytes # (0-1.0) k/uL Eosinophils # (0-0.7) k/uL Basophils # (0-0.2) k/uL PT 10.6 (9.0-12.0) sec INR 1.1 (<1.2) APTT 21.2 L (22.0-30.0) sec Sodium (137-145) mmol/L Potassium (3.5-5.1) mmol/L Chloride (98-107) mmol/L Carbon Dioxide (22-30) mmol/L Anion Gap mmol/L BUN (7-17) mg/dL Creatinine (0.52-1.04) mg/dL Est GFR (CKD-EPI)AfAm (>60 ml/min/1.73 sqM) Est GFR (CKD-EPI)NonAf (>60 ml/min/1.73 sqM) Glucose (74-99) mg/dL Calcium (8.4-10.2) mg/dL Total Bilirubin (0.2-1.3) mg/dL AST (14-36) U/L ALT (9-52) U/L Alkaline Phosphatase (38-126) U/L Troponin I (0.000-0.034) ng/mL Total Protein (6.3-8.2) g/dL Albumin (3.5-5.0) g/dL Amylase (30-110) U/L Lipase (23-300) U/L Urine Color Yellow Urine Appearance Clear (Clear) Urine pH 5.5 (5.0-8.0) Ur Specific [place] 1.020 (1.001-1.035) Urine Protein Negative (Negative) Urine Glucose (UA) 2+ H (Negative) Urine Ketones 1+ H (Negative) Urine Blood Negative (Negative) Urine Nitrite Negative (Negative) Urine Bilirubin Negative (Negative) Urine Urobilinogen 2.0 (<2.0) mg/dL Ur Leukocyte Esterase Small H (Negative) Urine RBC 1 (0-5) /hpf Urine WBC 1 (0-5) /hpf Ur Squamous Epith Cells 4 (0-4) /hpf Urine Bacteria Rare H (None) /hpf Urine Mucus Rare H (None) /hpf 02/27/18 13:34 EKG performed at 1121 shows sinus rhythm with first degree AV block. Left axis deviation. Left bundle branch block noted. Normal EKG. Ventricular rate of 65 bpm. Intervals to 70. QRS ration 1:30. QTc is 468/46 ms. - Radiology Data Radiology results: report reviewed Diverticulosis with prominent sigmoid colon level without evidence of diverticulitis. No suspicious finding for the symptoms of left lower quadrant pain with nausea and vomiting. Disposition Clinical Impression: Constipation, Nausea, Diverticulosis Disposition: HOME SELF-CARE Condition: Good Instructions: Constipation (ED) Additional Instructions: Patient has follow-up with primary care physician. Return to the emergency department if any alarming signs or symptoms occur. Patient should take stool softeners. Prescriptions: Bisacodyl [Dulcolax] 10 mg PO ONCE #20 tablet. Ondansetron Odt [Zofran Odt] 4 mg PO Q8HR PRN #12 tab PRN Reason: Nausea Is patient prescribed a controlled substance at d/c from ED?: No Referrals: Hugo Roca DO [Primary Care Provider] - 1-2 days Time of Disposition: 13:24
[2018-02-27 10:20] LABS: ALT 26 U/L (9-52); AST 21 U/L (14-36); Albumin 3.7 g/dL (3.5-5.0); Alkaline Phosphatase 66 U/L (38-126); Amylase 37 U/L (30-110); Anion Gap 9 mmol/L; Blood Urea Nitrogen 14 mg/dL (7-17); Calcium 8.7 mg/dL (8.4-10.2); Carbon Dioxide 25 mmol/L (22-30); Chloride 106 mmol/L (98-107); Glucose 195 mg/dL (74-99); Lipase 31 U/L (23-300); Potassium 4.4 mmol/L (3.5-5.1); Sodium 140 mmol/L (137-145); Total Bilirubin 0.8 mg/dL (0.2-1.3); Total Protein 6.4 g/dL (6.3-8.2)
[2018-02-27 10:29] LABS: Basophils % (A) 0 %; Eosinophils # (A) 0.2 k/uL (0-0.7); Eosinophils % (A) 3 %; HCT 41.7 % (34.0-46.0); HGB 13.7 gm/dL (11.4-16.0); Lymphocytes # (A) 1.1 k/uL (1.0-4.8); Lymphocytes % (A) 18 %; MCHC 32.8 g/dL (31.0-37.0); MCV 91.5 fL (80.0-100.0); Monocytes # (A) 0.4 k/uL (0-1.0); Monocytes % (A) 6 %; Neutrophils # (A) 4.3 k/uL (1.3-7.7); Neutrophils % (A) 71 %; Platelet Count 130 k/uL (150-450); RBC 4.56 m/uL (3.80-5.40); RDW 12.8 % (11.5-15.5); WBC 6.1 k/uL (3.8-10.6)
[2018-02-27 10:36] LABS: INR 1.1 (<1.2); Prothrombin Time 10.6 sec (9.0-12.0)
[2018-02-27 10:40] LABS: Partial Thromboplastin Time 21.2 sec (22.0-30.0)
[2018-02-27] MEDS ORDERED: MORPHINE SULFATE 4 MG/ML SYRINGE IVP STA (10:52)
--- NOTE | 2018-02-27 11:02 | XR ---
EXAMINATION TYPE: XR KUB DATE OF EXAM: 02/27/2018 COMPARISON: Abdomen pain INDICATION: Pain and nausea TECHNIQUE: Single view abdomen upright view FINDINGS: Nonspecific bowel gas is present within loops of small bowel as well as the colon. Fecal debris is wi thin the colon. No suspicious air-fluid levels or differential air-fluid levels are present. Free air is evident. Psoas margins are normal. No organomegaly is present. IMPRESSION: 1. Nonspecific abdomen.
[2018-02-27 11:41] LABS: Appearance,Urine Clear (Clear); Bacteria,Urine Rare /hpf; Bilirubin,Urine Negative (Negative); Blood,Urine Negative (Negative); Color,Urine Yellow; Glucose,Urine (UA) 2+ (Negative); Ketones,Urine 1+ (Negative); Leukocyte Esterase,Urine Small (Negative); Mucus,Urine Rare /hpf; Nitrite,Urine Negative (Negative); PH, Urine 5.5 (5.0-8.0); Protein,Urine Negative (Negative); RBC,Urine 1 /hpf (0-5); Squamous Epithelial Cell,Urine 4 /hpf (0-4); WBC,Urine 1 /hpf (0-5)
[2018-02-27 12:21] VITALS: RESP 16
--- NOTE | 2018-02-27 13:13 | CT ---
EXAMINATION TYPE: CT abdomen pelvis w con DATE OF EXAM: 02/27/2018 HISTORY: Nausea, vomiting, left lower quadrant pain CT DLP: 1245mGycm Automated Exposure Control for Dose Reduction was Utilized. CONTRAST: CT scan of the abdomen and pelvis is performed without oral but with IV Contrast, patient injected wi th 100 mL of Isovue 300. COMPARISON: None FINDINGS: LUNG BASES: Dependent atelectasis in both bases is present. LIVER/GB: Cholecystectomy clips are present. PANCREAS: Mild diffuse fat replaced atrophy of pancreas is seen. SPLEEN: No significant abnormality is seen. ADRENALS: No significant abnormality is seen. KIDNEYS: There is simple appearing 3.0 cm cyst laterally mid pole level right kidney. There is 2 mm n onobstructing calculus lower pole level right kidney coronal image 58 there is subcentimeter low dens e lesion upper pole level laterally coronal image 66 presumed benign. There is symmetric cortical med ullary uptake and excretion from both kidneys without evidence of hydronephrosis bilaterally. Bowel: The evaluation of the bowel is slightly suboptimal secondary to lack of enteric contrast. Ther e is poorly distended stomach seen which is thus suboptimally evaluated. There is no suspicious small or large bowel dilatation. There are diverticula throughout the colon most prominent in the sigmoid colon. There is no CT evidence for acute diverticulitis. UTERUS/ADNEXA: Anteverted uterus projects to right of midline. No ovarian enlargement or adnexal mass es identified. Scattered pelvic phleboliths are seen bilaterally. LYMPH NODES: No greater than 1cm abdominal or pelvic lymph nodes are appreciated. Slightly prominent but subcentimeter lymph nodes along course of the draining left ovarian vein are present. OSSEOUS STRUCTURES: Multilevel moderate anterior and lateral spurring in the thoracic spine is presen t. There is facet arthropathy lower lumbar levels. OTHER: No significant additional abnormality is seen. IMPRESSION: Diverticulosis most prominent sigmoid colon level without convincing CT evidence for acut e diverticulitis. No suspicious finding is seen to account for patient's symptoms of left lower quadr ant pain with nausea and vomiting.
[2018-02-27 14:17] VITALS: BP 135/68; PULSE 72; TEMP 98.3
== END 2018-02-27 14:20 | disposition home or self-care (01) ==
LOC: EC 09:18
DX: K57.30 Diverticulosis of large intestine without perforation or abscess without bleeding (principal); E11.9 Type 2 diabetes mellitus without complications; M19.90 Unspecified osteoarthritis, unspecified site; Z85.3 Personal history of malignant neoplasm of breast; Z90.49 Acquired absence of other specified parts of digestive tract; Z90.12 Acquired absence of left breast and nipple; Z90.721 Acquired absence of ovaries, unilateral; Z98.890 Other specified postprocedural states; Z79.84 Long term (current) use of oral hypoglycemic drugs; Z79.899 Other long term (current) drug therapy; Z88.0 Allergy status to penicillin; Z88.1 Allergy status to other antibiotic agents; Z91.048 Other nonmedicinal substance allergy status
CPT/HCPCS: 36415; 93005; 80053; 82150; 83690; 84484; 85025; 85610; 85730; 81001; 87086; 74018; 74177; 99285; 96374; 96361 ×4; J2270; Q9967

== ENCOUNTER → 2018-04-19 | Outpatient (CLI) | payer MEDICARE, BC ==
--- NOTE | 2018-04-19 15:01 | MM ---
Reason for exam: additional evaluation requested from prior study. Last mammogram was performed 1 year ago. History: Patient is postmenopausal and has history of breast cancer at age 50. Family history of breast cancer in father at age 80, breast cancer in sister at age 86, and breast cancer in sister at age 74. Mastectomy of the left breast, 1985. Took tamoxifen for 5 years beginning at age 51. Physical Findings: Nurse did not find any significant physical abnormalities on exam. MG 3D Diag Mammo W/Cad RT CC and MLO view(s) were taken of the right breast. Prior study comparison: April 17, 2017, right breast MG 3d diag mammo w/cad RT. April 12, 2016, right breast MG 3d diag mammo w/cad RT. The breast tissue is heterogeneously dense. This may lower the sensitivity of mammography. No significant new findings when compared with previous films. These results were verbally communicated with the patient and result sheet given to the patient on 04/19/18. ASSESSMENT: Benign, BI-RAD 2 RECOMMENDATION: Follow-up diagnostic mammogram of the right breast in 1 year.
== END ==
LOC: RADMAMWWP 13:30
PROVIDERS: ATTEND Family Medicine
DX: Z08 Encounter for follow-up examination after completed treatment for malignant neoplasm (principal); Z85.3 Personal history of malignant neoplasm of breast
CPT/HCPCS: 77065; G0279; 77061

== ENCOUNTER 2019-01-22 10:09 | Emergency (ER) | payer MEDICARE, BC ==
[2019-01-22 10:15] VITALS: TEMP 98
[2019-01-22] MEDS ORDERED: ONDANSETRON ODT 4 MG TAB PO STA ×2 (10:43→12:22)
[2019-01-22] MEDS ORDERED: KETOROLAC 30 MG/ML 1 ML VIAL IVP STA (10:43)
--- NOTE | 2019-01-22 11:05 | ED ---
General Adult HPI - General Chief complaint: Extremity Problem,Nontraumatic Stated complaint: RT hand pain-post op Time Seen by Provider: 01/22/19 10:10 Source: patient, EMS, RN notes reviewed Mode of arrival: EMS Limitations: no limitations - History of Present Illness Initial comments: 83-year-old female with a past medical history of breast cancer, diabetes myelitis, osteoarthritis, memory impairment presents to the emergency department for a chief complaint of right hand pain. Patient states that yesterday she had Mohs surgery on the dorsum of the right hand for skin cancer. States that she went home and was taking Tylenol for the pain. States the pain was a throbbing pain in her hand and made her vomit twice. States she has not eaten since yesterday afternoon because of this. Denies nausea at this time. States she called the client relations specialist's office where she had the surgery done by Dr. Harper and they recommended she come to the emergency department. Patient has no other complaints at this time including shortness of breath, chest pain, abdominal pain, nausea or vomiting, headache, or visual changes. - Related Data Home Medications Medication Instructions Recorded Confirmed metFORMIN HCL [Glucophage] 500 mg PO BID 04/12/17 01/22/19 Atorvastatin [Lipitor] 20 mg PO DAILY 04/25/17 01/22/19 Previous Rx's Medication Instructions Recorded Aspirin 81 mg PO DAILY #30 chewable 04/13/17 Ondansetron [Zofran ODT] 4 mg PO Q8HR PRN #15 tab 01/22/19 Allergies Allergy/AdvReac Type Severity Reaction Status Date / Time adhesive tape Allergy Rash/Hives Verified 01/22/19 10:36 cefaclor [From Ceclor] Allergy Rash/Hives Verified 01/22/19 10:36 Penicillins Allergy Rash/Hives Verified 01/22/19 10:36 Review of Systems ROS Statement: Those systems with pertinent positive or pertinent negative responses have been documented in the HPI. ROS Other: All systems not noted in ROS Statement are negative. Past Medical History Past Medical History: Cancer, Diabetes Mellitus, Memory Impairment, Osteoarthritis (OA) Additional Past Medical History / Comment(s): rectocele, chronic neck pain from fall, hx breast cancer (no left arm use.) History of Any Multi-Drug Resistant Organisms: None Reported Past Surgical History: Breast Surgery, Cholecystectomy, Heart Catheterization, Tonsillectomy Additional Past Surgical History / Comment(s): Lt mastectomy, ovarian cyst removed, jaimee cataracts, Past Anesthesia/Blood Transfusion Reactions: Previous Problems w/ Anesthesia Additional Past Anesthesia/Blood Transfusion Reaction / Comment(s): "took a long time to come out" Past Psychological History: No Psychological Hx Reported Smoking Status: Never smoker Past Alcohol Use History: None Reported Past Drug Use History: None Reported - Past Family History Father Family Medical History: Cancer Additional Family Medical History / Comment(s): breast cancer Mother Additional Family Medical History / Comment(s): of old age Sister(s) Family Medical History: Cancer Additional Family Medical History / Comment(s): Colon,stomach Brother(s) Family Medical History: Cancer Additional Family Medical History / Comment(s): Colon,melanoma,prostate,stomach General Exam Limitations: no limitations General appearance: alert, in no apparent distress Head exam: Present: atraumatic, normocephalic, normal inspection Eye exam: Present: normal appearance, PERRL, EOMI. Absent: scleral icterus, conjunctival injection, periorbital swelling ENT exam: Present: normal exam, mucous membranes moist Neck exam: Present: normal inspection, full ROM. Absent: tenderness, meningismus, lymphadenopathy Respiratory exam: Present: normal lung sounds bilaterally. Absent: respiratory distress, wheezes, rales, rhonchi, stridor Cardiovascular Exam: Present: regular rate, normal rhythm, normal heart sounds. Absent: systolic murmur, diastolic murmur, rubs, gallop, clicks Extremities exam: Present: full ROM (Patient is able to partially flex and extend all digits of the right hand.), normal capillary refill (cap refill < 2 seconds radial pulse 2+), other (Patient has a 4 cm surgical incision noted to the right dorsal hand with sutures in place. No sign of erythema or evidence of infection. No drainage. Appears to be well healing at this time for postop day 1. No edema or erythema or tenderness proximal to the right hand. No concern for DVT.) Neurological exam: Present: alert Psychiatric exam: Present: normal affect, normal mood Course Vital Signs 01/22/19 10:10 Temperature 98 F Pulse Rate 74 Respiratory 16 Rate Blood Pressure 142/91 O2 Sat by Pulse 95 Oximetry Medical Decision Making - Medical Decision Making 83-year-old female with a past medical history of breast cancer, diabetes mellitus, osteoarthritis, memory impairment presents to the emergency department for a chief complaint of right hand pain. Yesterday patient had Mohs surgery outpatient. States since then the pain has been a throbbing pain in her right hand and made her vomit twice. States that she called Dr Harper in the recommended she come to the emergency department. On evaluation patient is well-appearing. Vitals are stable. I did remove bandage on patient's hand and she has about 4 similar incision on the dorsal aspect, no signs of infection such as erythema or drainage. Unlikely to be infection as this is one day postop. Patient's arm was elevated, ice was applied, and Toradol was given. Pain has improved. Patient was also given Zofran and is currently drinking pop and eating a sandwich. She is feeling significantly better. Denying nausea at this time. At this time patient will be given Zofran for home and can follow up outpatient. Patient will continue to take Tylenol for pain, she will not be given narcotics as this could make her nausea worse. I did recommend she follow up with dermatology as well as primary.. Recommended she return here if she has any worsening symptoms. Disposition Clinical Impression: Postoperative pain of extremity Disposition: HOME SELF-CARE Condition: Good Instructions (If sedation given, give patient instructions): R.I.C.E. Treatment (ED) Additional Instructions: Please take Zofran as needed for nausea up to every 8 hours. Please follow-up with dermatology so they can reevaluate the hand as well as primary care. Return here if you have any worsening symptoms. Be sure to keep the hand elevated, ice the hand, and continue to take Tylenol for pain. Prescriptions: Ondansetron [Zofran ODT] 4 mg PO Q8HR PRN #15 tab PRN Reason: Nausea Is patient prescribed a controlled substance at d/c from ED?: No Referrals: Hugo Roca DO [Primary Care Provider] - 1-2 days Time of Disposition: 12:01
[2019-01-22 12:26] VITALS: BP 150/84; PULSE 68; RESP 18
== END 2019-01-22 12:47 | disposition home or self-care (01) ==
LOC: EC 10:09
DX: G89.18 Other acute postprocedural pain (principal); M79.641 Pain in right hand; E11.9 Type 2 diabetes mellitus without complications; Z88.0 Allergy status to penicillin; Z88.1 Allergy status to other antibiotic agents; Z91.048 Other nonmedicinal substance allergy status; Z79.84 Long term (current) use of oral hypoglycemic drugs; Z79.899 Other long term (current) drug therapy; Z85.3 Personal history of malignant neoplasm of breast; Z85.828 Personal history of other malignant neoplasm of skin; Z90.12 Acquired absence of left breast and nipple; Z87.39 Personal history of other diseases of the musculoskeletal system and connective tissue; Z80.8 Family history of malignant neoplasm of other organs or systems
CPT/HCPCS: 99283; 96374; J1885

== ENCOUNTER → 2019-05-02 | Outpatient (CLI) | payer MEDICARE, BC ==
--- NOTE | 2019-05-05 08:40 | MM ---
Reason for exam: additional evaluation requested from prior study. Last mammogram was performed 1 year ago. History: Patient is postmenopausal and has history of breast cancer at age 50. Family history of breast cancer in father at age 80, breast cancer in sister at age 86, and breast cancer in sister at age 74. Mastectomy of the left breast, 1985. Took tamoxifen for 5 years beginning at age 51. Physical Findings: Nurse did not find any significant physical abnormalities on exam. MG 3D Diag Mammo W/Cad RT CC and MLO view(s) were taken of the right breast. Prior study comparison: April 19, 2018, right breast MG 3d diag mammo w/cad RT. April 17, 2017, right breast MG 3d diag mammo w/cad RT. The breast tissue is heterogeneously dense. This may lower the sensitivity of mammography. Stable benign calcifications. There is no discrete abnormality. No significant new findings when compared with previous films. These results were verbally communicated with the patient and result sheet given to the patient on 05/02/19. ASSESSMENT: Benign, BI-RAD 2 RECOMMENDATION: Follow-up diagnostic mammogram of the right breast in 1 year.
== END | disposition home or self-care (01) ==
LOC: RADMAMWWP 15:10
PROVIDERS: ATTEND Family Medicine
DX: Z08 Encounter for follow-up examination after completed treatment for malignant neoplasm (principal); Z85.3 Personal history of malignant neoplasm of breast
CPT/HCPCS: 77065; G0279; 77061

== ENCOUNTER → 2019-07-16 | Outpatient (CLI) | payer MEDICARE, BC ==
[2019-07-16 16:26] LABS: African American GFR (CKD) 92.2 (60.0-200.0); Albumin 4.5 g/dL (3.80-4.90); Albumin/Globulin Ratio 2.25 (1.60-3.17); Anion Gap 9.7 mmol/L (4.00-12.00); Calcium 9.4 mg/dL (8.7-10.3); Carbon Dioxide 28.3 mmol/L (21.6-31.8); Chol/HDL Ratio 2.34; LDL Cholesterol,Calculated 62.2 mg/dL (0.0-131.0); Non-African American GFR(CKD) 79.6 (60.0-200.0); Potassium 4.1 mmol/L (3.5-5.5); Total Bilirubin 0.9 mg/dL (0.3-1.2); Total Protein 6.5 g/dL (6.2-8.2); VLDL Calculation 16.8 mg/dL (5.00-40.00)
== END | disposition home or self-care (01) ==
LOC: LABWHC1 09:30
PROVIDERS: ATTEND Internal Medicine Interventional Cardiology
DX: E78.2 Mixed hyperlipidemia (principal)
CPT/HCPCS: 36415; 80053; 80061

== ENCOUNTER → 2020-01-16 | Outpatient (CLI) | payer MEDICARE, BC ==
[2020-01-16 12:05] LABS: African American GFR (CKD) 78.5 (60.0-200.0); Albumin 4.2 g/dL (3.80-4.90); Albumin/Globulin Ratio 1.91 (1.60-3.17); Anion Gap 5.6 mmol/L (4.00-12.00); Calcium 9.3 mg/dL (8.7-10.3); Carbon Dioxide 31.4 mmol/L (21.6-31.8); Chol/HDL Ratio 2.37; Globulin 2.2 g/dL (1.6-3.3); LDL Cholesterol,Calculated 57.8 mg/dL (0.0-131.0); Non-African American GFR(CKD) 67.7 (60.0-200.0); Total Bilirubin 0.6 mg/dL (0.3-1.2); Total Protein 6.4 g/dL (6.2-8.2); VLDL Calculation 20.2 mg/dL (5.00-40.00)
== END | disposition home or self-care (01) ==
LOC: LABWHC1 07:32
PROVIDERS: ATTEND Internal Medicine Interventional Cardiology
DX: E78.2 Mixed hyperlipidemia (principal)
CPT/HCPCS: 36415; 80053; 80061

== ENCOUNTER → 2020-05-25 | Outpatient (CLI) | payer MEDICARE, BC ==
--- NOTE | 2020-05-25 14:54 | MM ---
Reason for exam: additional evaluation requested from prior study. Last mammogram was performed 1 year and 1 month ago. History: Patient is postmenopausal and has history of breast cancer at age 50. Family history of breast cancer in father at age 80, breast cancer in sister at age 86, and breast cancer in sister at age 74. Mastectomy of the left breast, 1985. Took tamoxifen for 5 years beginning at age 51. Physical Findings: Dr. Newman did breast exam. MG 3D Diag Mammo W/Cad RT CC and MLO view(s) were taken of the right breast. Prior study comparison: May 02, 2019, right breast MG 3d diag mammo w/cad RT. April 19, 2018, right breast MG 3d diag mammo w/cad RT. There are scattered fibroglandular densities. There is chronic nodularity in the right breast. No significant new findings when compared with previous films. These results were verbally communicated with the patient and result sheet given to the patient on 05/25/20. ASSESSMENT: Benign, BI-RAD 2 RECOMMENDATION: Follow-up diagnostic mammogram of the right breast in 1 year.
== END | disposition home or self-care (01) ==
LOC: RADMAMWWP 14:29
PROVIDERS: ATTEND Obstetrics & Gynecology
DX: C50.912 Malignant neoplasm of unspecified site of left female breast (principal); Z85.3 Personal history of malignant neoplasm of breast; Z90.12 Acquired absence of left breast and nipple
CPT/HCPCS: 77065; G0279; 77061

== ENCOUNTER → 2020-05-25 | Outpatient (CLI) | payer MEDICARE, BC ==
[2020-05-25 13:31] VITALS: BP 132/79; PULSE 57; RESP 18; TEMP 98
--- NOTE | 2020-05-25 14:46 | P.HPOB ---
History of Present Illness H&P Date: 05/25/20 Chief Complaint: The patient is here for her routine gynecologic exam and ma mmogram. This is an 85-year-old with an LMP of 1979. The patient is here to establish with this office. It has been about 7 years since her last pelvic exam. She is without gynecologic complaints and denies any postmenopausal bleeding. Review of Systems She states her weight can fluctuate by plus or -10 pounds.. She denies respiratory or cardiac problems. GI: History of chronic constipation and moves her bowels about 2 times per week. She denies maltreatment or problems with falling. : she denies any significant problems with urinary leakage, but occasionally has to get to the bathroom right away. Past Medical History Past Medical History: Cancer, Diabetes Mellitus, Hyperlipidemia, Memory Impairment, Osteoarthritis (OA) Additional Past Medical History / Comment(s): Type 2 diabetes, chronic neck pain, hx L breast cancer 1984. Skin cancer. PAST INDUSTRIAL SAFETY ENGINEER HISTORY: She has no history of STDs. She does have a history of a rectocele. History of Any Multi-Drug Resistant Organisms: None Reported Past Surgical History: Breast Surgery, Cholecystectomy, Heart Catheterization, Tonsillectomy Additional Past Surgical History / Comment(s): Lt mastectomy 1984, ovarian cyst removed, jaimee cataracts, D&C, colonoscopy 2014 Past Anesthesia/Blood Transfusion Reactions: Previous Problems w/ Anesthesia Additional Past Anesthesia/Blood Transfusion Reaction / Comment(s): "took a long time to come out" Past Psychological History: No Psychological Hx Reported Smoking Status: Never smoker Past Alcohol Use History: None Reported Past Drug Use History: None Reported Additional History: She has been a since 2009. She is not sexually active. She is retired and previously worked in a dental office. - Past Family History Father Family Medical History: Cancer Additional Family Medical History / Comment(s): breast cancer Mother Additional Family Medical History / Comment(s): of old age Sister(s) Family Medical History: Cancer Additional Family Medical History / Comment(s): Colon,stomach. 2 sisters had breast cancer. Brother(s) Family Medical History: Cancer Additional Family Medical History / Comment(s): Colon,melanoma,prostate,stomach Medications and Allergies Home Medications Medication Instructions Recorded Confirmed Type metFORMIN HCL [Glucophage] 500 mg PO BID 04/12/17 05/25/20 History Aspirin 81 mg PO DAILY #30 chewable 04/13/17 05/25/20 Rx Atorvastatin [Lipitor] 20 mg PO DAILY 04/25/17 05/25/20 History Acetaminophen [Tylenol] 325 mg PO DAILY PRN 05/25/20 05/25/20 History Nystatin 15 gm TP DAILY PRN 05/25/20 05/25/20 History Nystatin [Nystop] 1 applic TOPICAL BID PRN 05/25/20 05/25/20 History Prednisolone Acetate/Pf 1 drop BOTH EYES DAILY 05/25/20 05/25/20 History [Prednisolone Acet 1% Eye Drop] Allergies Allergy/AdvReac Type Severity Reaction Status Date / Time adhesive tape Allergy Rash/Hives Verified 05/25/20 13:20 cefaclor [From Ceclor] Allergy Rash/Hives Verified 05/25/20 13:20 Penicillins Allergy Rash/Hives Verified 05/25/20 13:20 Exam Vital Signs Temp Pulse Resp BP Pulse Ox 05/25/20 13:26 98.0 F 57 L 18 132/79 95 Intake and Output 05/24/20 05/25/20 05/25/20 22:59 06:59 14:59 Other: Weight 68.946 kg Height 5 feet 5 inches, weight 152 pounds, BMI 25.3. This is a well-developed well-nourished white female who is alert and oriented times 3 in no acute distress. HEENT: Within normal limits. NECK: Supple without mass or thyromegaly. CHEST AND LUNGS: Clear to auscultation. HEART: Regular rate and rhythm. BREASTS: The right breast is without mass or discharge. There is mild generalized tenderness. There is no erythema. The left is consistent with previous mastectomy. There are no masses and this is well-healed. AXILLARY EXAM: Negative for adenopathy. BACK: Negative for CVA tenderness. ABDOMEN: Soft, nontender, without palpable masses. PELVIC EXAM: Normal external genitalia with mild to moderate atrophy. Cervix and vagina appear normal with mild atrophy. There is no unusual discharge. There is a grade 2 rectocele. There is no significant cystocele or uterine prolapse noted. The uterus is midposition, nongravid size and nontender. There are no palpable adnexal masses or tenderness. There is mild erythema in the crease of the right groin and the patient states she has had chronic irritation in this area. She previously had used nystatin powder with some improvement. RECTAL EXAM: Rectovaginal exam is negative for mass or tenderness and is negative for occult blood. This does confirm a small rectocele. EXTREMITIES: Nontender. IMPRESSION: 1. 85-year-old menopausal female with grade 2 rectocele and otherwise unremarkable gynecologic exam. 2. Right groin crease erythema, possible intertrigo with chronic irritation. 3. History of left breast cancer status post mastectomy with no evidence of recurrence on exam today. 4. Strong family history of breast cancer in her father and 2 sisters. PLAN: 1. Pap smear was performed. We will try to obtain records from her previous Pap smears. If we can document adequate screening, we will consider discontinuing Pap smears. We will try to obtain records from Dr. Grey and [facility] for her previous Pap smears. 2. Self breast awareness was discussed with the patient. 3. Diagnostic right mammogram will be done today. 4. Lotrisone cream twice a day when necessary to the right groin area. The electronic prescription will be sent to [facility] pharmacy on and . 5. Osteoporosis prevention was discussed. I have stressed the importance of adequate calcium, vitamin D and regular exercise. Recommended amounts of calcium and vitamin D were also discussed. I have recommended bone density screening since she states it has been more than 5 years since this has been done. She believes bone density testing was normal in the past. 6. We have discussed BRCA counseling and testing because of her family history. She states she will consider this and let me know if she would like to proceed with this. 7. Conservative management for her grade 2 rectocele. This seems to be stable since she was told she had a rectocele in the past. She will call if she is having problems with the rectocele. I have also recommended that she avoid holding stool longer than necessary. 8. The patient was advised to return in 1-2 years for her well woman examination.
--- NOTE | 2020-06-08 15:16 | P.PN ---
Progress Note - Text Progress Note Date: 06/08/20 OUTPATIENT FOLLOW-UP NOTE TEST(S)/RESULTS: Test results from 05/25/2020 include negative Pap smear and benign right diagnostic mammogram. METHOD OF NOTIFICATION: The patient was notified by phone. PATIENT COMMENTS: She is happy to hear these results. DIAGNOSIS: Negative Pap smear and benign mammogram. DISCUSSION: I have obtained her records from [facility] and [facility]. She has had negative Pap smears on 04/15/2012, 04/29/2013, and 05/13/2014 at [facility]. She also had a negative Pap smear at [facility] on 05/19/2015. PLAN: Pap smears will be discontinued since she is greater than 65 and has had adequate screening. The patient was advised to return in 1-2 years for her well woman examination.
== END | disposition home or self-care (01) ==
LOC: WWCWWP 12:40
PROVIDERS: ATTEND Obstetrics & Gynecology
DX: Z53.9 Procedure and treatment not carried out, unspecified reason (principal)

== ENCOUNTER → 2020-07-14 | Outpatient (CLI) | payer MEDICARE, BC ==
[2020-07-14 23:31] LABS: African American GFR (CKD) 77.9 (60.0-200.0); Albumin 4.9 g/dL (3.80-4.90); Albumin/Globulin Ratio 1.96 (1.60-3.17); Anion Gap 8.6 mmol/L (4.00-12.00); BUN/Creat Ratio 16.25 Ratio (12.00-20.00); Calcium 9.8 mg/dL (8.7-10.3); Carbon Dioxide 31.4 mmol/L (21.6-31.8); Chol/HDL Ratio 2.34; Globulin 2.5 g/dL (1.6-3.3); LDL Cholesterol,Calculated 62.8 mg/dL (0.0-131.0); Non-African American GFR(CKD) 67.2 (60.0-200.0); Potassium 4.4 mmol/L (3.5-5.5); Total Protein 7.4 g/dL (6.2-8.2); VLDL Calculation 23.2 mg/dL (5.00-40.00)
== END | disposition home or self-care (01) ==
LOC: LABWHC1 08:31
PROVIDERS: ATTEND Internal Medicine Interventional Cardiology
DX: E78.2 Mixed hyperlipidemia (principal)
CPT/HCPCS: 36415; 80053; 80061

== ENCOUNTER → 2021-08-20 | Outpatient (CLI) | payer MEDICARE, BC ==
[2021-08-20 11:47] LABS: ALT 21 U/L (8-44); AST 20 U/L (13-35); African American GFR (CKD) 90.6 (60.0-200.0); Albumin 4.4 g/dL (3.8-4.9); Albumin/Globulin Ratio 1.62 (1.60-3.17); Alkaline Phosphatase 90 U/L (41-126); BUN/Creat Ratio 25.21 Ratio (12.00-20.00); Blood Urea Nitrogen 17.7 mg/dL (9.0-27.0); Calcium 9.6 mg/dL (8.7-10.3); Carbon Dioxide 26.4 mmol/L (20.0-27.5); Chloride 101 mmol/L (96-109); Chol/HDL Ratio 2.14 Ratio; Globulin 2.7 g/dL (1.6-3.3); Glucose 172 mg/dL (70-110); LDL Cholesterol,Calculated 67.3 mg/dL (0.0-131.0); Non-African American GFR(CKD) 78.2 (60.0-200.0); Potassium 3.9 mmol/L (3.5-5.5); Sodium 141 mmol/L (135-145); Total Protein 7.1 g/dL (6.2-8.2)
== END | disposition home or self-care (01) ==
LOC: LABWHC1 08-19 08:31
PROVIDERS: ATTEND Internal Medicine Interventional Cardiology
DX: E11.9 Type 2 diabetes mellitus without complications (principal); E78.2 Mixed hyperlipidemia; I25.10 Atherosclerotic heart disease of native coronary artery without angina pectoris; R63.5 Abnormal weight gain
CPT/HCPCS: 36415; 80053; 80061; 84439; 84443; 85025

== ENCOUNTER → 2021-09-19 | Outpatient (CLI) | payer MEDICARE, BC ==
--- NOTE | 2021-09-19 14:28 | MM ---
Reason for exam: additional evaluation requested from prior study. Last mammogram was performed 1 year and 4 months ago. History: Patient is postmenopausal and has history of breast cancer at age 50. Family history of breast cancer in father at age 80, breast cancer in sister at age 86, and breast cancer in sister at age 74. Mastectomy of the left breast, 1985. Took tamoxifen for 5 years beginning at age 51. Physical Findings: A clinical breast exam by your physician is recommended on an annual basis and results should be correlated with mammographic findings. MG 3D Diag Mammo W/Cad RT CC and MLO view(s) were taken of the right breast. Prior study comparison: May 25, 2020, right breast MG 3d diag mammo w/cad RT. May 02, 2019, right breast MG 3d diag mammo w/cad RT. The breast tissue is heterogeneously dense. This may lower the sensitivity of mammography. Stable benign calcifications. No significant new findings when compared with previous films. Results were given to the patient verbally at the time of the exam. ASSESSMENT: Benign, BI-RAD 2 RECOMMENDATION: Follow-up diagnostic mammogram of both breasts in 1 year.
== END | disposition home or self-care (01) ==
LOC: RADMAMWWP 13:58
PROVIDERS: ATTEND Family Medicine
DX: R92.1 Mammographic calcification found on diagnostic imaging of breast (principal); Z85.3 Personal history of malignant neoplasm of breast; Z78.0 Asymptomatic menopausal state; Z80.3 Family history of malignant neoplasm of breast
CPT/HCPCS: 77065; G0279; 77061

== ENCOUNTER 2023-07-12 12:23 | Emergency (ER) | payer MEDICARE, BC ==
[2023-07-12 13:01] VITALS: RESP 18
[2023-07-12 13:14] LABS: Appearance,Urine Cloudy (Clear); Bacteria,Urine Many /hpf; Bilirubin,Urine Negative (Negative); Blood,Urine Negative (Negative); Color,Urine Yellow; Glucose,Urine (UA) Trace (Negative); Hyaline Casts,Urine 2 /lpf (0-2); Ketones,Urine Negative (Negative); Leukocyte Esterase,Urine Large (Negative); Mucus,Urine Occasional /hpf; Nitrite,Urine Positive (Negative); PH, Urine 5.5 (5.0-8.0); Protein,Urine Trace (Negative); Specific Gravity,Urine 1.023 (1.001-1.035); Squamous Epithelial Cell,Urine 10 /hpf (0-4); Urobilinogen,Urine <2.0 mg/dL (<2.0); WBC,Urine 77 /hpf (0-5)
[2023-07-12] MEDS ORDERED: SULFAMETHOX-TMP 800-160MG 1 EACH TAB PO STA (13:33)
--- NOTE | 2023-07-12 14:09 | ED ---
General Adult HPI - General Chief complaint: Weakness Stated complaint: weak, dizzy, Time Seen by Provider: 07/12/23 12:40 Source: patient, RN notes reviewed, old records reviewed Mode of arrival: ambulatory Limitations: no limitations - History of Present Illness Initial comments: This is an 88-year-old female presents emergency department complaining of urinary frequency. Patient states this occurs quite often with her she has had many urinary tract infections. Patient states she was told to come in because the ladies at the assisted living place thought she was a little weaker than normal. Patient denies being weaker than normal but states that she is having urinary frequency. Patient [place] any fever chills. Patient is having back pain. Patient states she occasionally has some dysuria but not the last time she urinated. Patient denies any abdominal pain. Patient is known to primary diarrhea. - Related Data Home Medications Medication Instructions Recorded Confirmed metFORMIN HCL [Glucophage] 500 mg PO BID 04/12/17 05/25/20 Atorvastatin [Lipitor] 20 mg PO DAILY 04/25/17 05/25/20 Acetaminophen [Tylenol] 325 mg PO DAILY PRN 05/25/20 05/25/20 Nystatin 15 gm TP DAILY PRN 05/25/20 05/25/20 Nystatin [Nystop] 1 applic TOPICAL BID PRN 05/25/20 05/25/20 Prednisolone Acetate/Pf 1 drop BOTH EYES DAILY 05/25/20 05/25/20 [Prednisolone Acet 1% Eye Drop] Previous Rx's Medication Instructions Recorded Aspirin 81 mg PO DAILY #30 chewable 04/13/17 Clotrimazole/Betamethasone Dip 1 applic TOPICAL BID PRN #45 gm 05/25/20 [Lotrisone Cream] Doxycycline [Vibramycin] 100 mg PO BID 7 Days #14 capsule 01/31/22 Sulfamethox-Tmp 800-160Mg [Bactrim 1 each PO Q12HR #14 tab 07/12/23 DS 800-160 mg] Allergies Allergy/AdvReac Type Severity Reaction Status Date / Time adhesive tape Allergy Rash/Hives Verified 07/12/23 12:41 cefaclor [From Ceclor] Allergy Rash/Hives Verified 07/12/23 12:41 Penicillins Allergy Rash/Hives Verified 07/12/23 12:41 Review of Systems ROS Statement: Those systems with pertinent positive or pertinent negative responses have been documented in the HPI. ROS Other: All systems not noted in ROS Statement are negative. Past Medical History Past Medical History: Cancer, Diabetes Mellitus, Memory Impairment, Osteoarthritis (OA) Additional Past Medical History / Comment(s): rectocele, chronic neck pain from fall, hx breast cancer (no left arm use.) History of Any Multi-Drug Resistant Organisms: None Reported Past Surgical History: Breast Surgery, Cholecystectomy, Heart Catheterization, Tonsillectomy Additional Past Surgical History / Comment(s): Lt mastectomy, ovarian cyst removed, jaimee cataracts, Past Anesthesia/Blood Transfusion Reactions: Previous Problems w/ Anesthesia Additional Past Anesthesia/Blood Transfusion Reaction / Comment(s): "took a long time to come out" Past Psychological History: No Psychological Hx Reported Smoking Status: Never smoker Past Alcohol Use History: None Reported Past Drug Use History: None Reported - Past Family History Father Family Medical History: Cancer Additional Family Medical History / Comment(s): breast cancer Mother Additional Family Medical History / Comment(s): of old age Sister(s) Family Medical History: Cancer Additional Family Medical History / Comment(s): Colon,stomach. 2 sisters had breast cancer. Brother(s) Family Medical History: Cancer Additional Family Medical History / Comment(s): Colon,melanoma,prostate,stomach General Exam - General Exam Comments Initial Comments: GENERAL: Patient is well-developed and well-nourished. Patient is nontoxic and well-hyd rated and is in no acute distress. ENT: Neck is soft and supple. No significant lymphadenopathy is noted. Oropharynx is clear. Moist mucous membranes. Neck has full range of motion without elicit ing any pain. T EYES: The sclera were anicteric and conjunctiva were pink and moist. Extraocular movements were intact and pupils were equal round and reactive to light. Eyelids were unremarkable. PULMONARY: Unlabored respirations. Good breath sounds bilaterally. No audible rales rhonchi or wheezing was noted. CARDIOVASCULAR: There is a regular rate and rhythm without any murmurs gallops or rubs. ABDOMEN: Soft and nontender with normal bowel sounds. SKIN: Skin is clear with no lesions or rashes and otherwise unremarkable. NEUROLOGIC: Patient is alert and oriented x3. Cranial nerves II through XII are grossly intact. Motor and sensory are also intact. Normal speech, volume and content. Symmetrical smile. MUSCULOSKELETAL: Normal extremities with adequate strength and full range of motion. LYMPHATICS: No significant lymphadenopathy is noted PSYCHIATRIC: Normal psychiatric evaluation Limitations: no limitations Course Vital Signs 07/12/23 12:37 Temperature 98 F Pulse Rate 81 Respiratory 18 Rate Blood Pressure 126/79 O2 Sat by Pulse 98 Oximetry Medical Decision Making - Medical Decision Making Was pt. sent in by a medical professional or institution (LETICIA Boogie, [employer], urgent care, hospital, or [place] health care facility...) When possible be specific @ -No Did you speak to anyone other than the patient for history (EMS, parent, family, police, friend...)? What history was obtained from this source @ -No Did you review nursing and triage notes (agree or disagree)? Why? @ -I reviewed and agree with nursing and triage notes Were old charts reviewed (outside hosp., previous admission, EMS record, old EKG, old radiological studies, urgent care reports/EKG's, [place] health care facility records)? Report findings @ -Reviewed prior charts and prior lab within this patient Differential Diagnosis (chest pain, altered mental status, abdominal pain women, abdominal pain men, vaginal bleeding, weakness, fever, dyspnea, syncope, headache, dizziness, GI bleed, back pain, seizure, CVA, palpatations, mental health, musculoskeletal)? @ -Urinary tract infection, pyelonephritis, urethritis EKG interpreted by me (3pts min.). @ -As above X-rays interpreted by me (1pt min.). @ -None done CT interpreted by me (1pt min.). @ -None done U/S interpreted by me (1pt. min.). @ -None done What testing was considered but not performed or refused? (CT, X-rays, U/S, labs)? Why? @ -None What meds were considered but not given or refused? Why? @ -None Did you discuss the management of the patient with other professionals (professionals i.e. LETICIA Boogie, [employer]ER, lab, RT, psych nurse, social media community manager, sample preparation supervisor, teacher, tactical/mobile watch officer, nurse outreach case manager)? Give summary @ -No Was smoking cessation discussed for >3mins.? @ -No Was critical care preformed (if so, how long)? @ -No Were there social determinants of health that impacted care today? How? (Homelessness, low income, unemployed, alcoholism, drug addiction, transportation, low edu. Level, literacy, decrease access to med. care, shelter, rehab)? @ -No Was there de-escalation of care discussed even if they declined (Discuss DNR or withdrawal of care, Hospice)? DNR status @ -No What co-morbidities impacted this encounter? (DM, HTN, Smoking, COPD, CAD, Cancer, CVA, ARF, Chemo, Hep., AIDS, mental health diagnosis, sleep apnea, morbid obesity)? @ -None Was patient admitted / discharged? Hospital course, mention meds given and route, prescriptions, significant lab abnormalities, going to OR and other pertinent info. @ -Patient was able to ambulate to the bathroom without problem. Patient states she normally uses a walker so she does feel little bit off balance today. Patient did receive Bactrim in the emergency department. Undiagnosed new problem with uncertain prognosis? @ -No Drug Therapy requiring intensive monitoring for toxicity (Heparin, Nitro, Insulin, Cardizem)? @ -No Were any procedures done? @ -No Diagnosis/symptom? @ -Urinary tract infection Acute, or Chronic, or Acute on Chronic? @ -Acute Uncomplicated (without systemic symptoms) or Complicated (systemic symptoms)? @ -Uncomplicated Side effects of treatment? @ -No Exacerbation, Progression, or Severe Exacerbation? @ -No Poses a threat to life or bodily function? How? (Chest pain, [place], [place], pneumonia, PE, COPD, DKA, ARF, appy, cholecystitis, CVA, Diverticulitis, Homicidal, Suicidal, threat to staff... and all critical care pts) @ -No - Lab Data Lab Results 07/12/23 Range/Units 12:53 Urine Color Yellow Urine Appearance Cloudy H (Clear) Urine pH 5.5 (5.0-8.0) Ur Specific [place] 1.023 (1.001-1.035) Urine Protein Trace H (Negative) Urine Glucose (UA) Trace H (Negative) Urine Ketones Negative (Negative) Urine Blood Negative (Negative) Urine Nitrite Positive H (Negative) Urine Bilirubin Negative (Negative) Urine Urobilinogen <2.0 (<2.0) mg/dL Ur Leukocyte Esterase Large H (Negative) Urine WBC 77 H (0-5) /hpf Ur Squamous Epith Cells 10 H (0-4) /hpf Urine Bacteria Many H (None) /hpf Hyaline Casts 2 (0-2) /lpf Urine Mucus Occasional H (None) /hpf Disposition Clinical Impression: Urinary tract infection Disposition: HOME SELF-CARE Condition: Good Instructions (If sedation given, give patient instructions): Urinary Tract Infection in Men (ED) Prescriptions: Sulfamethox-Tmp 800-160Mg [Bactrim DS 800-160 mg] 1 each PO Q12HR #14 tab Is patient prescribed a controlled substance at d/c from ED?: No Referrals: Hugo Roca DO [Primary Care Provider] - 1-2 days Time of Disposition: 14:10
[2023-07-12 15:16] VITALS: BP 122/76; PULSE 78; TEMP 97.6
== END 2023-07-12 14:59 | disposition home or self-care (01) ==
LOC: EC 12:23
DX: N39.0 Urinary tract infection, site not specified (principal); E11.9 Type 2 diabetes mellitus without complications; M19.90 Unspecified osteoarthritis, unspecified site; Z79.84 Long term (current) use of oral hypoglycemic drugs; Z79.1 Long term (current) use of non-steroidal anti-inflammatories (NSAID); Z91.09 Other allergy status, other than to drugs and biological substances; Z88.0 Allergy status to penicillin; Z88.1 Allergy status to other antibiotic agents
CPT/HCPCS: 81001; 87077; 87086; 87186; 99285